=== PATIENT | male | born 1980 | race African-American/Black ===

== ENCOUNTER 2017-03-13 23:04 | Emergency (ER) | payer OTHER ==
[~2017-03-13] VITALS: Ht 193 cm; Wt 110.4 kg
[2017-03-14 00:23] LABS: HEMATOCRIT 45.5 % (38.0-50.0); MCH 29.1 PG (29.0-34.0); MCHC 34.3 G/DL (30.0-36.0); MCV 84.7 FL (86-99); MEAN PLAT.VOLUME 9.7 uM^3 (9.0-12.4); PLATELET COUNT 304 K/uL (156-360); RBC DIS.WIDTH-CV 12.7 % (11.8-14.6); RBC DIS.WIDTH-SD 39.2 % (39-53); RED BLOOD COUNT 5.37 M/uL (4.00-5.50); WHITE BLOOD COUNT 6.4 K/uL (4.1-10.2)
[2017-03-14 00:37] LABS: CHLORIDE 107 mEq/L (99-109); SODIUM 140 mEq/L (136-147)
[2017-03-14 00:40] LABS: GLUCOSE 91 mg/dL (70-99)
[2017-03-14 00:41] LABS: ANION GAP 9 MEQ/L (2-14)
[2017-03-14 00:42] LABS: TOTAL BILIRUBIN 0.3 mg/dL (0.0-1.0)
[2017-03-14 00:43] LABS: ALKALINE PHOSPHATASE 54 IU/L (3-129)
[2017-03-14 00:44] LABS: UREA NITROGEN (BUN) 15 mg/dL (9-23)
[2017-03-14 00:53] LABS: GFR ESTIMATE (CALCULATED) > 59 mL/min/
[2017-03-14 01:53] LABS: CREATINE KINASE 578 IU/L (1-294)
[2017-03-14 01:55] LABS: ADD MIUA? YES; BILIRUBIN NEGATIVE; BLOOD NEGATIVE; COLOR YELLOW ((YELLOW)); GLUCOSE (STRIP) NEGATIVE; KETONES NEGATIVE; LEUKOCYTES TRACE; NITRITE NEGATIVE; PROTEIN (STRIP) 100; SPECIFIC GRAVITY 1.028 (1.000-1.030); UROBILINOGEN 0.2 MG/DL (0.2-1.0)
[2017-03-14 02:06] LABS: BACTERIA RARE /HPF; EPITHELIAL CELLS RARE /HPF; MUCUS 1+ /LPF; RED BLOOD CELLS 0-5 /HPF (0-5); UCUL ADDED? YES
[2017-03-14] MEDS ORDERED: BENTYL20 MG PO (02:18)
[2017-03-14] MEDS ORDERED: ZOFRAN ODT4 MG PO (02:18)
[2017-03-14 02:38] VITALS: BP 126/62
== END 2017-03-14 02:39 | disposition home or self-care (01) ==
LOC: EME 23:04
DX: R10.32 Left lower quadrant pain (principal); R11.0 Nausea; F17.200 Nicotine dependence, unspecified, uncomplicated
CPT/HCPCS: 80053; 81003; 82550; 85027; 87086; 99281; 99285; J2405; J7030